=== PATIENT | female | born 1990 | race Caucasian/White ===

== ENCOUNTER 2024-01-22 17:20 | Emergency (ER) | payer OTHER ==
[~2024-01-22] VITALS: Ht 162.6 cm; Wt 65.8 kg
[2024-01-22 17:33] VITALS: BP_SYST 112; PULSE 117; RESP 17; TEMP 98.7; O2SAT 96
[2024-01-22] MEDS: DIPHTH,PERTUSS(ACELL),TET VAC 0.5 ML VIAL (Tdap) I.M. ONE (18:45)
[2024-01-22 18:53] VITALS: BP_SYST 112; PULSE 117; RESP 17; TEMP 98.7; O2SAT 96
== END 2024-01-22 18:49 | disposition home or self-care (01) ==
LOC: SED 17:20
DX: S61.011A Laceration without foreign body of right thumb without damage to nail, initial encounter (principal); Z23 Encounter for immunization; W26.0XXA Contact with knife, initial encounter; Y93.89 Activity, other specified; Y92.89 Other specified places as the place of occurrence of the external cause; Y99.8 Other external cause status
CPT/HCPCS: 90715; 99283